=== PATIENT | female | born 1935 | race Caucasian/White ===

== ENCOUNTER 2016-11-30 21:14 | Inpatient (IN) | payer MEDICARE, BC ==
[~2016-11-30] VITALS: Ht 168.9 cm; Wt 64.9 kg
[2016-11-30 21:40] LABS: BASOPHILS # (AUTO) 0.1 /CMM (0.0-0.2); DIFF TOTAL % 100 %; EOSINOPHILS # (AUTO) 0.3 /CMM (0.0-0.7); EOSINOPHILS % (AUTO) 2.9 % (0.0-6.0); HEMATOCRIT 40 % (33-45); HEMOGLOBIN 13.6 g/dL (11.5-14.8); LYMPHOCYTES # (AUTO) 3.6 /CMM (0.8-4.8); LYMPHOCYTES % (AUTO) 33.1 % (20.0-44.0); MEAN CORPUSCULAR HEMOGLOBIN 29 PG (26.0-33.0); MEAN CORPUSCULAR HGB CONC 34 g/dl (31.0-36.0); MEAN CORPUSCULAR VOLUME 86 fL (82-100); MONOCYTES # (AUTO) 0.7 /CMM (0.1-1.30); MONOCYTES % (AUTO) 6.8 % (2.0-12.0); NEUTROPHILS # (AUTO) 6.1 /CMM (1.8-8.9); NEUTROPHILS % (AUTO) 56.2 % (43.0-81.0); PLATELET COUNT (AUTO) 235 /CMM (150-450); RED BLOOD CELL COUNT(AUTO) 4.66 MIL/uL (4.0-5.2); WHITE BLOOD COUNT (AUTO) 10.8 K/uL (4.3-11.0)
[2016-11-30 21:52] LABS: ANION GAP 12 (5-14); CALCIUM, SERUM 8.4 mg/dL (8.5-10.1); CARBON DIOXIDE 27 mmol/L (21-32); CHLORIDE 108 mmol/L (98-107); CREATININE 1.2 mg/dL (0.6-1.3); GLUCOSE 122 mg/dL (74-106); POTASSIUM 3.4 mmol/L (3.5-5.1); SODIUM SERUM 143 mmol/L (136-145); UREA NITROGEN, BLOOD 21 mg/dL (7-18)
[2016-11-30 21:56] LABS: PROTHROMBIN TIME 10.8 SECS (9.5-12.7)
[2016-11-30 21:58] LABS: ALANINE AMINOTRANSFERASE 27 U/L (12-78); ALBUMIN 3.3 g/dL (3.4-5.0); ASPARTATE AMINOTRANSFERASE 14 U/L (15-37); BILIRUBIN,DIRECT 0.1 mg/dL (0.0-0.2); BILIRUBIN,TOTAL 0.3 mg/dL (0.2-1.0); INDIRECT BILIRUBIN 0.2 mg/dL (0.0-1.1); TOTAL PROTEIN, SERUM 6.5 g/dL (6.4-8.2)
[2016-11-30 22:00] LABS: TROPONIN I < 0.017 ng/mL (0.00-0.056)
[2016-11-30] MEDS ORDERED: IV NS 0.9% 1,000 ML BAG IV ONE (22:30)
[2016-11-30] MEDS ORDERED: PRAV20TA4 PO (22:47)
[2016-11-30] MEDS ORDERED: MEMA10TA PO (22:47)
[2016-11-30] MEDS ORDERED: DONE10TA4 PO (22:47)
[2016-11-30] MEDS ORDERED: [UNRECOGNIZED DRUG - CODE] PO (22:47)
[2016-11-30] MEDS ORDERED: APIX5TAB PO (22:47)
[2016-11-30] MEDS ORDERED: ASCO500T9 PO (22:47)
[2016-11-30] MEDS ORDERED: IV NS 0.9% 250 ML IV ONE (22:57)
[2016-11-30] MEDS ORDERED: IOHEXOL-350 100 ML VIAL IV ONE (22:57)
[2016-11-30] MEDS ORDERED: POTASSIUM CHLORIDE 20 MEQ TAB.PRT.SR PO ONE ×2 (23:00→23:40)
[2016-11-30] MEDS ORDERED: POTASSIUM CHLORIDE 20 MEQ TAB.PRT.SR PO SCH (23:00)
[2016-12-01] MEDS ORDERED: IV NS 0.9% 1,000 ML IV PRN (00:26)
[2016-12-01] MEDS ORDERED: ACETAMINOPHEN 325 MG TABLET PO PRN (00:30)
[2016-12-01] MEDS ORDERED: ONDANSETRON HCL/PF 4 MG/2 ML VIAL IVP PRN (00:30)
[2016-12-01] MEDS ORDERED: MAG HYDROX/AL HYDROX/SIMETH 30 ML UDC PO PRN (00:30)
[2016-12-01] MEDS ORDERED: ZOLPIDEM TARTRATE 5 MG TABLET PO PRN (00:30)
[2016-12-01] MEDS ORDERED: HYDROCODONE/APAP 5/325MG 1 EACH TABLET PO PRN (00:30)
[2016-12-01] MEDS ORDERED: MAGNESIUM HYDROXIDE 30 ML UDC PO PRN (00:30)
[2016-12-01] MEDS ORDERED: Z GUARD REMEDY 2 OZ OINT TP PRN (00:30)
[2016-12-01 00:36] LABS: ADD UA MICROSCOPIC NO; KETONES,URINE NEGATIVE (NEGATIVE); LEUKOCYTE ESTERASE ,URINE NEGATIVE (NEGATIVE)
[2016-12-01 01:00] VITALS: BP_SYST 110; BP_SYST 112; BP_SYST 115; BP_DIAS 60; BP_DIAS 61
[2016-12-01 01:05] VITALS: BP 110/61
[2016-12-01] MEDS ORDERED: IV SET PRIMARY PUMP SET 1 EA INFUS.SET MC ONE (01:53)
[2016-12-01] MEDS ORDERED: IV NS 0.9% 1,000 ML ONE (01:53)
[2016-12-01 04:00] VITALS: BP 137/69
[2016-12-01 04:18] VITALS: BP 137/69
[2016-12-01 06:58] VITALS: BP 138/70
[2016-12-01] MEDS ORDERED: PANTOPRAZOLE 40 MG TABLET.DR PO SCH (07:30)
[2016-12-01 08:00] VITALS: BP 138/70
[2016-12-01] MEDS ORDERED: MEMANTINE HCL 5 MG TABLET PO SCH (09:00)
[2016-12-01] MEDS ORDERED: APIXABAN 5 MG TABLET PO SCH (10:42)
[2016-12-01] MEDS ORDERED: PRAVASTATIN SODIUM 20 MG TABLET PO SCH (18:00)
[2016-12-01] MEDS ORDERED: DONEPEZIL 5 MG TABLET PO SCH (22:00)
[2016-12-01] MEDS ORDERED: ATORVASTATIN 10 MG TABLET PO SCH (22:00)
== END 2016-12-01 11:55 | disposition home or self-care (01) | DRG 74 ==
LOC: ER 21:16 → TELE 22:35
DX: G90.8 Other disorders of autonomic nervous system (principal); E86.0 Dehydration; E78.5 Hyperlipidemia, unspecified; E87.6 Hypokalemia; F03.90 Unspecified dementia, unspecified severity, without behavioral disturbance, psychotic disturbance, mood disturbance, and anxiety; I10 Essential (primary) hypertension; I48.0 Paroxysmal atrial fibrillation; Z85.118 Personal history of other malignant neoplasm of bronchus and lung; Z85.048 Personal history of other malignant neoplasm of rectum, rectosigmoid junction, and anus
CPT/HCPCS: 36415; 71010-TC; 80048-TC; 80076-TC; 81000-TC; 84484-TC; 85025-TC; 85730-TC; 86850-TC; 87081-TC; 93880-TC; A4606; J7030; J7050; Q9967; Z7610